=== PATIENT | male | born 1935 | race Caucasian/White ===

== ENCOUNTER 2018-05-08 09:08 | Inpatient (IN) ==
--- NOTE | 2018-05-08 09:38 | Emergency Department Note ---
ED Disposition Clinical Impression: COPD exacerbation, Hypertension, Hyperlipidemia, Tobacco use disorder, LBBB (left bundle branch block), Respiratory failure, Elevated troponin Disposition: Home, Self-Care Condition on Discharge: Fair Referrals: Julio Sanchez MD [Primary Care Provider] - - Critical Care Critical Care Time: No Attestation: On , the high probability of a clinically significant, sudden or life threatening deterioration of the following system(s) required my full and direct attention, intervention and personal management. The time I documented below is in addition to time spent performing reported procedures but includes the following listed in this critical care notation. Medical Decision Making - Rasheed Inquiry Pt receiving controlled substance: No Rasheed was queried for this patient: No Vital Signs: 05/08/18 09:10 05/08/18 09:20 05/08/18 10:32 Pulse Rate [Left Radial] 87 103 H Respiratory Rate 32 H 26 H Blood Pressure [Right Arm] 160/92 H 140/65 Blood Pressure Mean [Right Arm] 114 90 Blood Pressure Source [Right Arm] Automatic Cuff Blood Pressure Position [Right Arm] Sitting 02 Sat by Pulse Oximetry 58 L 92 L 99 Oxygen Delivery Method Room Air Non-Rebreather Non-Rebreather Oxygen Flow Rate (LPM) 15 15 05/08/18 10:44 05/08/18 11:26 Pulse Rate [Left Radial] 106 H 103 H Respiratory Rate 26 H 26 H Blood Pressure [Right Arm] 142/77 H 139/90 Blood Pressure Mean [Right Arm] 98 106 Blood Pressure Source [Right Arm] Automatic Cuff Automatic Cuff Blood Pressure Position [Right Arm] Sitting Sitting 02 Sat by Pulse Oximetry 98 96 Oxygen Delivery Method Non-Rebreather BiPAP Oxygen Flow Rate (LPM) 15 - Lab Data Lab Results 05/08/18 09:30: WBC 21.0 H*, RBC 4.59 L, Hgb 14.3, Hct 45.9, MCV 100.2 H, MCH 31.1, MCHC 31.0 L, RDW 12.9, Plt Count 186, MPV 7.7, Neut % (Auto) 80.0, Lymph % (Auto) 11.3, [place] % (Auto) 4.3, Eos % (Auto) 3.1, Baso % (Auto) 0.3, Neut # (Auto) 16.8 H, Lymph # (Auto) 2.4, [place] # (Auto) 0.9, Eos # (Auto) 0.7 H, Baso # (Auto) 0.1, Total Counted 100, Neutrophils % (Manual) 74, Lymphocytes % (Manual) 15, Monocytes % (Manual) 6, Eosinophils % (Manual) 3, Basophils % (Manual) 2.0 H , Platelet Estimate Normal, RBC Morphology Normal, Macrocytosis 1+ 05/08/18 09:40: Sodium 144, Potassium 4.0, Chloride 107, Carbon Dioxide 23, Anion Gap 18.0 H, BUN 20 H, Creatinine 1.23, Estimated Creat Clear 46, Estimated GFR 57 L, Est GFR ( Amer) 69, Glucose 188 H, Calcium 8.5, Total Bilirubin 0.6, AST 48 H, ALT 45, Alkaline Phosphatase 84, Total Creatine Kinase 319 H, CK- MB (CK-2) 20.1 H*, CK-MB (CK-2) Rel Index 6.3 H, Troponin I 1.45 H, Total Protein 7.0, Albumin 3.9, Globulin 3.1, Albumin/Globulin Ratio 1.3 05/08/18 09:40: B-Natriuretic Peptide 198 H 05/08/18 09:40: Lactate 4.4 H 05/08/18 09:51: Specimen Source Right radial, O2 % 100% nrb, ABG pH 7.22 L*, ABG pCO2 48.1 H, ABG pO2 113.1 H, ABG HCO3 19.2 L, ABG Total CO2 20.7 L, ABG O2 Saturation 97, ABG Base Excess -8.5 L, Isra Test Acceptable Result diagrams: 05/08/18 09:30 05/08/18 09:40 Orders (Tests/Meds): ED MEDICATIONS Generic Name Dose Route Start Last Admin Trade Name Freq PRN Reason Stop Dose Admin Albuterol/Ipratropium 3 ml 05/08/18 09:45 05/08/18 10:06 Duoneb 3ml Neb IH 06/07/18 09:44 3 ml Q1H JOYCE Administration Levofloxacin/Dextrose 750 mg in 150 mls @ 100 mls/hr 05/08/18 10:15 05/08/18 10:15 Levofloxacin 750mg/150ml Premix IV 05/22/18 10:14 100 mls/hr Q24H JOYCE Administration Protocol Sodium Chloride 1,000 mls @ 999 mls/hr 05/08/18 11:15 05/08/18 11:10 Sod Chlor 0.9% 1000ml Bag IV 05/08/18 12:15 999 mls/hr .Q1H1M JOYCE Administration Sodium Chloride 3 ml 05/08/18 10:08 Sodium Chloride 3% 15ml Neb IH 06/07/18 10:07 ONCE PRN INDUCE SPUTUM COLLECTION Discontinued Medications Generic Name Dose Route Start Last Admin Trade Name Freq PRN Reason Stop Dose Admin Famotidine 20 mg 05/08/18 09:33 05/08/18 09:47 Pepcid 20mg/2ml Vial IV 05/08/18 09:34 20 mg ONCE ONE Administration Hydrocortisone Sodium Succinate 100 mg 05/08/18 09:32 05/08/18 09:33 Solu-Cortef 100mg Vial IV 05/08/18 09:33 100 mg ONCE ONE Administration Methylprednisolone Sodium Succinate 125 mg 05/08/18 09:32 05/08/18 09:25 Solu-Medrol 125mg/2ml Vial IV 05/08/18 09:33 125 mg ONCE ONE Administration Methylprednisolone Sodium Succinate 80 mg 05/08/18 10:35 05/08/18 11:32 Solu-Medrol 125mg/2ml Vial IV 05/08/18 10:36 80 mg ONCE ONE Administration Nitroglycerin 0.5 gm 05/08/18 09:33 05/08/18 09:35 Nitroglycerin 1 Inch Oint Udp TD 05/08/18 09:34 0.5 gm ONCE ONE Administration ORDERS Category Date Time Status Lactic Acid Follow Up (RFLX 1) Stat Lab 05/08/18 10:41 Ordered Blood Culture Stat Micro 05/08/18 09:40 Received Sputum Culture & Gram Stain Stat Micro 05/08/18 10:08 Ordered ABG [Arterial Blood Gas] Stat RT 05/08/18 09:51 Ordered ECG Request by /Donna Stat Y 05/08/18 09:31 Ordered - Radiology Data #1 Image(s): Chest Image Reviewed: Yes I reviewed the patient's radiology image Preliminary Findings: Abnormal IMPRESSION: Probable right lower lobe pneumonia in addition to bilateral basilar chronic fibrotic changes - ECG Data Tracing #1 Normal sinus rhythm 90/min left atrial enlargement left bundle branch block baseline artifact no old EKG for comparison. ECG initial impression date: 05/08/18 ECG initial impression time: 09:42 Medical Decision Narrative: I gave the patient additional dose of steroids with modest improvement. He started on a BiPAP with good tolerance and reduction of the FiO2 to 50. X-ray was positive for bilateral pneumonia. It was not agreeable for admission nursing staff had to explain to him in more details the consequences of him leaving home. [address] Hurst is covering Dr. Sanchez agreed to admit the patient Resp/SOB HPI - General Chief Complaint: Shortness of Breath/Dyspnea Stated Complaint: SOB Time Seen by Provider: 05/08/18 09:15 Mode of Arrival: Ambulatory Limitations: No Limitations Description of Symptoms (Recalled from ER Triage Doc. by RN): to ed per pvt car with c/o shortness of breath and chest pain. starting at 2am today cpta none - History of Present Illness 82 years old white male avid smoker with history of hypertension hyperlipidemia and heart disease. He was brought by his daughter to the ED because of progressive shortness of breath since 2:00 in the morning. He denies having fever chills productive sputum hemoptysis chest pain or palpitation. He denies having nausea vomiting hematemesis coffee-ground emesis melanotic stool or bleeding per rectum. Denies having dysuria hematuria or frequency. He feels weak. MD Complaint: shortness of breath Onset (ago): hour(s) (Started at 2 AM today) Severity: severe Consistency/Duration: constant Relieving factors: oxygen, rest, bronchodilators, upright position Exacerbating factors: lying flat, exertion Known history of: COPD Associated symptoms: denies other symptoms Treatment prior to arrival: none - Related Data Home Medications Medication Instructions Recorded Confirmed Amlodipine Besylate 10 mg PO DAILY 05/08/18 05/08/18 Clopidogrel Bisulfate [Plavix] 75 mg PO DAILY 05/08/18 05/08/18 Metoprolol Tartrate [Lopressor 25 mg PO BID 05/08/18 05/08/18 25mg tablet] Simvastatin 40 mg PO DAILY 05/08/18 05/08/18 Allergies Allergy/AdvReac Type Severity Reaction Status Date / Time Penicillin Allergy Unknown Uncoded 07/28/17 15:20 Penicillin V Allergy Unknown Uncoded 07/28/17 15:20 Tetanus Toxoid Allergy Unknown Uncoded 07/28/17 15:20 [facility] History I have reviewed the patient's past medical history: Yes - Social History Smoking Status: Current every day smoker Tobacco Type: cigarettes Alcohol Intake: never - Psychiatric History Expresses thoughts of harming self/others: None Suicide Plan Description: No Plan ROS Obtained: Yes All systems reviewed & no additional complaints Physical Exam - General General appearance: alert, other (82 years old pale diaphoretic sitting upright in obvious respiratory distress. ) - Head Head exam: normocephalic - Eye Eye exam: Present: normal appearance, PERRL, EOMI. Absent: scleral icterus, conjunctival redness, nystagmus - ENT ENT exam: Present: normal exam, normal oropharynx, mucous membranes moist, TM's normal bilaterally, normal external ear exam - Neck Neck exam: Present: normal inspection, full ROM, trachea midline. Absent: tenderness, meningismus, lymphadenopathy - Chest Chest inspection: Present: normal inspection, symmetric chest wall rise. Absent: tenderness - Respiratory Respiratory exam: Present: respiratory distress, accessory muscle use (Diminished air entry bilaterally.), prolonged expiratory phase, other. Absent: normal lung sounds bilaterally, wheezes - Cardiovascular Cardiovascular exam: Present: regular rate, normal rhythm, normal heart sounds, other (Distant heart sounds). Absent: JVD - Abdominal Exam Abdominal exam: Present: soft, normal bowel sounds. Absent: distention, tenderness, guarding, rebound, rigidity - exam: Present: other (Was not indicated. ) - Extremities Exam Extremities exam: Present: normal inspection, full ROM, normal capillary refill, other (Poor hygiene with onychomycosis. ). Absent: tenderness, pedal edema, joint swelling, calf tenderness - Back Exam Back exam: Present: normal inspection. Absent: tenderness, CVA tenderness (R), CVA tenderness (L), paraspinal tenderness, vertebral tenderness - Neurological Exam Neurological exam: Present: alert, oriented X3, CN II-XII intact, motor sensory deficit, reflexes normal, other (He is alert to his daughter place and is aware of the day.) - Psychiatric Psychiatric exam: Present: normal affect, normal mood - Skin Skin exam: Present: warm, dry, intact, normal color - Lymphatic Lymphatic Findings: no adenopathy
[2018-05-08 09:53] LABS: ABG Base Excess -8.5 mmol/L (-2.4-2.3); ABG HCO3 19.2 mmhg (22.0-26.0); ABG Oxygen Saturation 97 % (90-100); ABG PCO2 48.1 mmhg (35.0-45.0); ABG PH 7.22 mmol/L (7.35-7.45); ABG PO2 113.1 mmhg (80-100); ABG TCO2 20.7 mmhg (23-27)
[2018-05-08 09:54] LABS: Allen's Test Acceptable
[2018-05-08 10:24] LABS: Basophils % 0.3 % (0.1-2.0); Eosinophils % 3.1 % (0.1-12.0); Hematocrit 45.9 % (42.0-52.0); Hemoglobin 14.3 g/dL (14.1-18.0); Lymphocytes % 11.3 K/mm3 (10-50); Mean Corpuscular Hemoglobin 31.1 pg (27.0-31.2); Mean Corpuscular Volume 100.2 fl (80-94); Mean Platelet Volume 7.7 fl (7.4-10.4); Monocytes % 4.3 % (1.7-9.3); Neutrophils # 16.8 K/mm3 (1.8-7.8); Platelet Count 186 K/mm3 (142-424); Red Blood Count 4.59 M/mm3 (4.60-6.20); Red Cell Distribution Width 12.9 % (11.5-17.5)
[2018-05-08 10:25] LABS: Basophils # 0.1 K/mm3 (0-0.2); Eosinophils # 0.7 K/mm3 (0.0-0.4); Lymphocytes # 2.4 K/mm3 (0.7-4.5); Monocytes # 0.9 K/mm3 (0.1-1.0)
[2018-05-08 10:42] LABS: Albumin Level 3.9 gm/dL (3.4-5.0); Albumin/Globulin Ratio 1.3 (1.1-1.8); Bilirubin,Total 0.6 mg/dL (0.2-1.0); Calcium 8.5 mg/dL (8.5-10.1); Globulin 3.1 gm/dl (1.3-3.2)
[2018-05-08 10:57] LABS: Eosinophils % 3 % (0-3); Lymphocytes % 15 % (10-50); Macrocytosis 1+; Monocytes % 6 % (2-9); Neutrophils % 74 % (42-76); RBC Morphology Normal; Total Cells Counted 100
--- NOTE | 2018-05-08 13:25 | History & Physical Report ---
*Admission Date: 05/08/18 *Chief complaint: Shortness of breath *History of present illness: Mr Haney is an 82 yo WM with hx of HBP, cerebrovascular disease, and valvular heart disease who presented to the ER this morning after suddden onset of SOA during the night. He denied cough, chest pain or fever. On prompt evaluation in the ER, he was noted to be hypoxic and acidotic on his ABG. WBC elevated at 21,000 and CXR showing RLL infiltrates. He was given aerosols and IV steroids and started on Bipap and his O2 sats came up to upper 80s and low 90s. His intial troponin was also mildly elevated. He initially refused admission but has finally consented to stay in the hospital for "one night". At the time of my exam, he is resting comfortably and tolerating the Bipap. He denies chest pain and feels less SOA. His 2nd troponin has returned elevated at 10. Dr. Fermin has been made aware. He has no past hx of angina or ID. Echo last year showed dilated left atrium, EF=45% and moderate to severe mitral regurgitation. A carotid US last year showed 100% stenosis on left and 70-99% stenosis of right carotid. He declined any further workup or intervention and has been maintained on ASA and Plavix. [facility] History Medical History: Reports:: Carotid Stenosis, Chronic Obstructive Pulmonary Disease (COPD), Cerebrovascular Accident, Hypertension, Valvular Heart Disease Other Surgeries: Yes: No Previous Surgery - *Social History Smoking Status: Current every day smoker Tobacco Type: cigarettes Alcohol Intake: never - Psychiatric History Expresses thoughts of harming self/others: None Suicide Plan Description: No Plan Review of Systems - Constitutional Denies chills, Denies fever(s), Denies weight loss - Eyes Denies change in vision - ENT Reports abnormal hearing Comments: c/o toothache from recent broken tooth - *Cardiovascular Reports shortness of breath, Reports shortness of breath with activity, Denies chest pain, Denies irregular heart rhythm - *Respiratory Reports chest congestion, Reports shortness of breath with activity, Denies cough, Denies coughing up blood, Denies pain with cough - *Gastrointestinal Denies abdominal pain, Denies change in stools, Denies bright, red blood in stools, Denies nausea, Denies vomiting - *Genitourinary Denies difficulty urinating - *Musculoskeletal Reports limited joint movement - Integumentary/Breasts Denies rash - *Neurologic Reports weakness, Denies behavioral changes Meds Home Medications Medication Instructions Recorded Confirmed Type Amlodipine Besylate 10 mg PO DAILY 05/08/18 05/08/18 History Clopidogrel Bisulfate [Plavix] 75 mg PO DAILY 05/08/18 05/08/18 History Metoprolol Tartrate [Lopressor 25 mg PO BID 05/08/18 05/08/18 History 25mg tablet] Simvastatin 40 mg PO HS 05/08/18 05/09/18 History Allergies Allergy/AdvReac Type Severity Reaction Status Date / Time Penicillins Allergy Unknown Verified 05/08/18 13:10 allergy reaction Tetanus Vaccines and Toxoid Allergy Unknown Verified 05/08/18 13:10 allergy reaction Exam Vital signs and Labs for Last 24 Hours: Temp Pulse Resp BP Pulse Ox 98.0 F 80 24 141/92 H 90 L 05/08/18 12:56 05/08/18 12:56 05/08/18 12:56 05/08/18 12:56 05/08/18 12:56 Laboratory Results - last 24 hr 05/08/18 09:30: WBC 21.0 H*, RBC 4.59 L, Hgb 14.3, Hct 45.9, MCV 100.2 H, MCH 31.1, MCHC 31.0 L, RDW 12.9, Plt Count 186, MPV 7.7, Neut % (Auto) 80.0, Lymph % (Auto) 11.3, [place] % (Auto) 4.3, Eos % (Auto) 3.1, Baso % (Auto) 0.3, Neut # (Auto) 16.8 H, Lymph # (Auto) 2.4, [place] # (Auto) 0.9, Eos # (Auto) 0.7 H, Baso # (Auto) 0.1, Total Counted 100, Neutrophils % (Manual) 74, Lymphocytes % (Manual) 15, Monocytes % (Manual) 6, Eosinophils % (Manual) 3, Basophils % (Manual) 2.0 H , Platelet Estimate Normal, RBC Morphology Normal, Macrocytosis 1+ 05/08/18 09:40: Sodium 144, Potassium 4.0, Chloride 107, Carbon Dioxide 23, Anion Gap 18.0 H, BUN 20 H, Creatinine 1.23, Estimated Creat Clear 46, Estimated GFR 57 L, Est GFR ( Amer) 69, Glucose 188 H, Calcium 8.5, Total Bilirubin 0.6, AST 48 H, ALT 45, Alkaline Phosphatase 84, Total Creatine Kinase 319 H, CK- MB (CK-2) 20.1 H*, CK-MB (CK-2) Rel Index 6.3 H, Troponin I 1.45 H, Total Protein 7.0, Albumin 3.9, Globulin 3.1, Albumin/Globulin Ratio 1.3 05/08/18 09:40: B-Natriuretic Peptide 198 H 05/08/18 09:40: Lactate 4.4 H 05/08/18 09:51: Specimen Source Right radial, O2 % 100% nrb, ABG pH 7.22 L*, ABG pCO2 48.1 H, ABG pO2 113.1 H, ABG HCO3 19.2 L, ABG Total CO2 20.7 L, ABG O2 Saturation 97, ABG Base Excess -8.5 L, Isra Test Acceptable 05/08/18 12:12: Troponin I 10.72 H I & O for Last 24 hours: Intake & Output 05/06/18 05/07/18 05/08/18 05/09/18 11:59 11:59 11:59 11:59 Weight 150 lb 161 lb 1 oz - Constitutional Comments: lying comfortably with Bipap in place. No resp distress - *Routine HEENT Exam Head: Present: normocephalic, atraumatic Eye: Present: EOMI, PERRL. Absent: scleral injection ENT: Present: mucous membranes dry Comments: edentulous - *Routine Neck Exam Present: supple, carotid bruit. Absent: thyromegaly - *Routine Respiratory Exam Comments: coarse rhonchi and wheezes throughout - *Routine Cardiovascular Exam Present: RRR, murmur Comments: Gr 2/6 systolic murmur - *Routine Abdominal Exam Present: soft. Absent: tenderness, distended - *Routine Extremities Exam Comments: trace PTE - *Routine Skin Exam Present: warm. Absent: rash - *Routine Neurological Exam Present: alert, oriented X3 Assessment and Plan (1) RLL pneumonia Current visit: Yes Status: Acute Category: Medical Code(s): J18.1 - Lobar pneumonia, unspecified organism (2) Acute [place] Current visit: Yes Status: Acute Category: Medical Code(s): I21.9 - Acute myocardial infarction, unspecified (3) Acute respiratory failure Current visit: Yes Status: Acute Category: Medical Code(s): J96.00 - Acute respiratory failure, unspecified whether with hypoxia or hypercapnia (4) Carotid artery disease Current visit: Yes Status: Acute Category: Medical Code(s): I77.9 - Disorder of arteries and arterioles, unspecified (5) History of CVA (cerebrovascular accident) Current visit: Yes Status: Acute Category: Medical Code(s): Z86.73 - Personal history of transient ischemic attack (TIA), and cerebral infarction without residual deficits (6) Mitral valve regurgitation Current visit: Yes Status: Acute Category: Medical Code(s): I34.0 - Nonrheumatic mitral (valve) insufficiency (7) Hypertension Current visit: Yes Status: Acute Category: Medical Code(s): I10 - Essential (primary) hypertension (8) COPD (chronic obstructive pulmonary disease) Current visit: Yes Status: Acute Category: Medical Code(s): J44.9 - Chronic obstructive pulmonary disease, unspecified (9) Personal history of tobacco use Current visit: Yes Status: Acute Category: Social Hx Code(s): Z87.891 - Personal history of nicotine dependence - Assessment and plan all Dx Assessment and Plan for all problems:: He has agreed to a brief hospital admission to treat his pneumonia. He will be continued on Bipap, antibiotics, steroids, and aerosols. Currently his sats are in upper 80s and he appears comfortable. Dr. Fermin has been made aware of the elevation of his 2nd troponin. Patient will not likely consent to invasive procedures but will discuss further when other family is available. Will also clarify his DNR status.
[2018-05-09 06:48] LABS: Eosinophils # 0.1 K/mm3 (0.0-0.4); Eosinophils % 0.3 % (0.1-12.0); Hematocrit 37.6 % (42.0-52.0); Hemoglobin 13.1 g/dL (14.1-18.0); Lymphocytes # 1.1 K/mm3 (0.7-4.5); Lymphocytes % 6.1 K/mm3 (10-50); Mean Corpuscular HGB Conc 34.8 g/dL (31.8-35.4); Mean Corpuscular Hemoglobin 33.8 pg (27.0-31.2); Mean Corpuscular Volume 97.3 fl (80-94); Mean Platelet Volume 7.9 fl (7.4-10.4); Monocytes # 0.7 K/mm3 (0.1-1.0); Monocytes % 3.7 % (1.7-9.3); Neutrophils # 16.6 K/mm3 (1.8-7.8); Neutrophils % 89.9 % (37.0-80.0); Platelet Count 137 K/mm3 (142-424); Red Blood Count 3.87 M/mm3 (4.60-6.20); Red Cell Distribution Width 13.2 % (11.5-17.5); White Blood Count 18.4 K/mm3 (4.8-10.8)
[2018-05-09 07:04] LABS: Anion Gap 17.4 mEq/L (5-15); Calcium 8.3 mg/dL (8.5-10.1); Chol/HDL Ratio 2.4 (1-3.5); Potassium 4.4 mmoL/L (3.5-5.1)
[2018-05-09 07:06] LABS: Lymphocytes % 13 % (10-50); Monocytes % 1 % (2-9); Neutrophils % 76 % (42-76); RBC Morphology Normal; Rouleaux 1+; Total Cells Counted 100
--- NOTE | 2018-05-09 09:58 | Progress Note ---
Internal Medicine - PN: Subj *Date: 05/09/18 *Time: 09:55 Interval history: The chart is reviewed. Patient has a pneumonia and has definitely had a myocardial infarction. On exam this morning he looks surprisingly good. He is alert and in no acute distress. He is sitting on the edge of his bed talking to his relative. His color is good. His heart rate is regular. He has fairly good air movement bilaterally with some rales. He has no edema. Exam Vital signs and Labs for Last 24 Hours: Temp Pulse Resp BP Pulse Ox 97.0 F L 77 20 136/75 94 L 05/09/18 07:59 05/09/18 07:59 05/09/18 07:59 05/09/18 07:59 05/09/18 08:00 Laboratory Results - last 24 hr 05/08/18 09:30: WBC 21.0 H*, RBC 4.59 L, Hgb 14.3, Hct 45.9, MCV 100.2 H, MCH 31.1, MCHC 31.0 L, RDW 12.9, Plt Count 186, MPV 7.7, Neut % (Auto) 80.0, Lymph % (Auto) 11.3, [place] % (Auto) 4.3, Eos % (Auto) 3.1, Baso % (Auto) 0.3, Neut # (Auto) 16.8 H, Lymph # (Auto) 2.4, [place] # (Auto) 0.9, Eos # (Auto) 0.7 H, Baso # (Auto) 0.1, Total Counted 100, Neutrophils % (Manual) 74, Lymphocytes % (Manual) 15, Monocytes % (Manual) 6, Eosinophils % (Manual) 3, Basophils % (Manual) 2.0 H , Platelet Estimate Normal, RBC Morphology Normal, Macrocytosis 1+ 05/08/18 09:40: Sodium 144, Potassium 4.0, Chloride 107, Carbon Dioxide 23, Anion Gap 18.0 H, BUN 20 H, Creatinine 1.23, Estimated Creat Clear 46, Estimated GFR 57 L, Est GFR ( Amer) 69, Glucose 188 H, Calcium 8.5, Total Bilirubin 0.6, AST 48 H, ALT 45, Alkaline Phosphatase 84, Total Creatine Kinase 319 H, CK- MB (CK-2) 20.1 H*, CK-MB (CK-2) Rel Index 6.3 H, Troponin I 1.45 H, Total Protein 7.0, Albumin 3.9, Globulin 3.1, Albumin/Globulin Ratio 1.3 05/08/18 09:40: B-Natriuretic Peptide 198 H 05/08/18 09:40: Lactate 4.4 H 05/08/18 12:12: Troponin I 10.72 H 05/08/18 13:43: Lactate 5.3 H 05/08/18 15:30: Troponin I 31.94 H 05/08/18 15:30: Lactate 5.8 H 05/08/18 18:13: Troponin I 56.77 H 05/09/18 06:08: WBC 18.4 H, RBC 3.87 L, Hgb 13.1 L, Hct 37.6 L, MCV 97.3 H, MCH 33.8 H, MCHC 34.8, RDW 13.2, Plt Count 137 L D, MPV 7.9, Neut % (Auto) 89.9 H, Lymph % (Auto) 6.1 L, [place] % (Auto) 3.7, Eos % (Auto) 0.3, Baso % (Auto) 0.0 L, Neut # (Auto) 16.6 H, Lymph # (Auto) 1.1, [place] # (Auto) 0.7, Eos # (Auto) 0.1, Baso # (Auto) 0.0, Total Counted 100, Neutrophils % (Manual) 76, Band Neutrophils % 10.0 H, Lymphocytes % (Manual) 13, Monocytes % (Manual) 1 L, Platelet Estimate Slight decrease, RBC Morphology Normal, [place] 1+ 05/09/18 06:08: Sodium 145, Potassium 4.4, Chloride 107, Carbon Dioxide 25, Anion Gap 17.4 H, BUN 31 H D, Creatinine 1.51 H D, Estimated Creat Clear 39, Estimated GFR 45 L, Est GFR ( Amer) 54 L D, Glucose 156 H, Calcium 8.3 L, Magnesium 1.8, Triglycerides 92, Cholesterol 132 L, LDL Cholesterol 60, VLDL Cholesterol 18, HDL Cholesterol 54, Cholesterol/HDL Ratio 2.4 05/09/18 06:08: B-Natriuretic Peptide 1170 H Laboratory Tests 05/08/18 05/08/18 05/08/18 09:30 09:40 15:30 WBC 21.0 H* Hgb 14.3 Sodium Potassium Chloride Anion Gap BUN Creatinine Total Creatine Kinase 319 H Troponin I 31.94 H 05/08/18 05/09/18 05/09/18 18:13 06:08 06:08 WBC 18.4 H Hgb 13.1 L Sodium 145 Potassium 4.4 Chloride 107 Anion Gap 17.4 H BUN 31 H D Creatinine 1.51 H D Total Creatine Kinase Troponin I 56.77 H I & O for Last 24 hours: Intake & Output 05/06/18 05/07/18 05/08/18 05/09/18 11:59 11:59 11:59 11:59 Intake Total 756 / 756 Output Total 710 / 710 Balance 46 / 46 Weight 150 lb 157 lb 7 oz - Constitutional no acute distress - *Routine HEENT Exam Eye: Present: PERRL ENT: Present: mucous membranes moist - *Routine Respiratory Exam Absent: respiratory distress Comments: Good air movement bilaterally with a few rales. There are decreased breath sounds. - *Routine Cardiovascular Exam Present: RRR - *Routine Abdominal Exam Present: soft. Absent: tenderness - *Routine Extremities Exam Absent: edema Assessment and Plan (1) RLL pneumonia Current visit: Yes Status: Acute Category: Medical Code(s): J18.1 - Lobar pneumonia, unspecified organism (2) Acute [place] Current visit: Yes Status: Acute Category: Medical Code(s): I21.9 - Acute myocardial infarction, unspecified (3) Acute respiratory failure Current visit: Yes Status: Acute Category: Medical Code(s): J96.00 - Acute respiratory failure, unspecified whether with hypoxia or hypercapnia (4) Carotid artery disease Current visit: Yes Status: Acute Category: Medical Code(s): I77.9 - Disorder of arteries and arterioles, unspecified (5) History of CVA (cerebrovascular accident) Current visit: Yes Status: Acute Category: Medical Code(s): Z86.73 - Personal history of transient ischemic attack (TIA), and cerebral infarction without residual deficits (6) Mitral valve regurgitation Current visit: Yes Status: Acute Category: Medical Code(s): I34.0 - Nonrheumatic mitral (valve) insufficiency (7) Hypertension Current visit: Yes Status: Acute Category: Medical Code(s): I10 - Essential (primary) hypertension - Assessment and plan all Dx Assessment and Plan for all problems:: He is responding well to current treatment. He does understand the seriousness of his illness. He is not pushing for discharge today.
--- NOTE | 2018-05-09 11:59 | Pharmacy Consult Notes ---
[facility] Pharmacy VTE Monitoring - Patient Demographics Admission date: 05/08/18 Report Date: 05/09/18 Time: 11:59 Allergies/Adverse Reactions: Patient Allergies Penicillins Allergy (Verified 05/08/18 13:10) Unknown allergy reaction Tetanus Vaccines and Toxoid Allergy (Verified 05/08/18 13:10) Unknown allergy reaction Height: 1.65 m Weight: 71.412 kg Patient Problems: Current Active Problems COPD exacerbation (Acute) Hypertension (Acute) Hyperlipidemia (Acute) Tobacco use disorder (Acute) LBBB (left bundle branch block) (Acute) Respiratory failure (Acute) Elevated troponin (Acute) Acute respiratory failure (Acute) Carotid artery disease (Acute) History of CVA (cerebrovascular accident) (Acute) Acute [place] (Acute) Mitral valve regurgitation (Acute) RLL pneumonia (Acute) - VTE Risk Labs: VTE Related Lab Results Hgb 13.1 g/dL (14.1-18.0) L 05/09/18 06:08 Hct 37.6 % (42.0-52.0) L 05/09/18 06:08 Plt Count 137 K/mm3 (142-424) L D 05/09/18 06:08 BUN 31 mg/dL (7-18) H D 05/09/18 06:08 Creatinine 1.51 mg/dL (0.70-1.30) H D 05/09/18 06:08 Estimated Creat Clear 39 mL/min (0-300) 05/09/18 06:08 Was VTE Risk Assessment Performed: Yes VTE Score: 6 VTE Risk Level: Moderate Risk - Prophylaxis VTE Prophylaxis Ordered?: Yes Types of VTE Prophylaxis: Pharmacological Pharmacologic Type: Enoxaparin
--- NOTE | 2018-05-10 07:58 | Progress Note ---
Internal Medicine - PN: Subj *Date: 05/10/18 *Time: 07:45 Interval history: Patient states that he does not feel well. He is short of breath. He denies chest pain. He is eating without difficulty. He is voiding QS. He would like to be left alone. Blood cultures showing gram-positive cocci Exam Vital signs and Labs for Last 24 Hours: Temp Pulse Resp BP Pulse Ox 97.1 F L 72 16 123/73 91 L 05/10/18 07:37 05/10/18 07:37 05/10/18 07:37 05/10/18 07:37 05/10/18 07:37 I & O for Last 24 hours: Intake & Output 05/07/18 05/08/18 05/09/18 05/10/18 11:59 11:59 11:59 11:59 Intake Total 996 / 996 1455 / 1455 Output Total 710 / 710 600 / 600 Balance 286 / 286 855 / 855 Weight 150 lb 157 lb 7 oz 155 lb 3 oz Microbiology Reports for the Last 24 Hours: Microbiology 05/09/18 16:30 Sputum - Expectorated Sputum Gram Stain - Final 05/09/18 16:30 Sputum - Expectorated Sputum Sputum Culture - Final 05/08/18 09:40 Blood Blood Culture - Preliminary Gram Positive Cocci 05/09/18 19:00 Sputum - Expectorated Sputum Gram Stain - Final 05/09/18 19:00 Sputum - Expectorated Sputum Sputum Culture - Preliminary - Constitutional no acute distress Comments: Sitting on the bedside eating his breakfast. Dyspneic with talking - *Routine Respiratory Exam Comments: Bilateral wheezing and right basilar crackles. Poor inspiratory effort. - *Routine Cardiovascular Exam Present: RRR - *Routine Abdominal Exam Present: soft, normoactive bowel sounds. Absent: tenderness - *Routine Extremities Exam Present: edema (Trace) - *Routine Neurological Exam Seems alert. Assessment and Plan (1) RLL pneumonia Current visit: Yes Status: Acute Category: Medical Code(s): J18.1 - Lobar pneumonia, unspecified organism (2) Acute [place] Current visit: Yes Status: Acute Category: Medical Code(s): I21.9 - Acute myocardial infarction, unspecified (3) Acute respiratory failure Current visit: Yes Status: Acute Category: Medical Code(s): J96.00 - Acute respiratory failure, unspecified whether with hypoxia or hypercapnia (4) Carotid artery disease Current visit: Yes Status: Acute Category: Medical Code(s): I77.9 - Disorder of arteries and arterioles, unspecified (5) History of CVA (cerebrovascular accident) Current visit: Yes Status: Acute Category: Medical Code(s): Z86.73 - Personal history of transient ischemic attack (TIA), and cerebral infarction without residual deficits (6) Mitral valve regurgitation Current visit: Yes Status: Acute Category: Medical Code(s): I34.0 - Nonrheumatic mitral (valve) insufficiency (7) Hypertension Current visit: Yes Status: Acute Category: Medical Code(s): I10 - Esse ntial (primary) hypertension (8) COPD (chronic obstructive pulmonary disease) Current visit: Yes Status: Acute Category: Medical Code(s): J44.9 - Chronic obstructive pulmonary disease, unspecified (9) Personal history of tobacco use Current visit: Yes Status: Acute Category: Social Hx Code(s): Z87.891 - Personal history of nicotine dependence - Assessment and plan all Dx Assessment and Plan for all problems:: We will schedule aerosols. Discussed with cardiology and will give 40 of Lasix IV. Continue current antibiotics with final blood cultures pending. Patient did express with cardiology that he wanted no procedures and just wanted to to be with his .
--- NOTE | 2018-05-10 08:09 | Consult Report ---
History of Present Illness Consult date: 05/10/18 Requesting physician: Julio Sanchez Consult reason: chest pain Chief complaint: chest pain, SOA Additional Medical History:: 1. History of hypertension A. Echo, 2004, normal LVEF with aortic valve sclerosis without stenosis 2. Hyperlipidemia 3. 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 Carotid stenosis, u/s 2004, LICA occluded with 20-49% PINKY B. Chronic plavix therapy 4. Tobacco use, continued 5. Coronary artery disease A. Myocardial infarction with troponin of 51, 04/2018, patient refused cardiac catheter further intervention B. Abnormal EKG with left bundle branch block C. Prior inferior NM by stress test, 2004, with normal EF with mild anterior ischemia. Asymptomatic, so no further intervention recommended. 6. DNR History of present illness: Mr Haney is an 82 yo WM with hx of HBP, cerebrovascular disease, and valvular heart disease who presented to the ER this morning after suddden onset of SOA during the night. He denied cough, chest pain or fever. On prompt evaluation in the ER, he was noted to be hypoxic and acidotic on his ABG. WBC elevated at 21,000 and CXR showing RLL infiltrates. He was given aerosols and IV steroids and started on Bipap and his O2 sats came up to upper 80s and low 90s. His intial troponin was also mildly elevated. He initially refused admission but has finally consented to stay in the hospital for "one night". At the time of my exam, he is resting comfortably and tolerating the Bipap. He denies chest pain and feels less SOA. His 2nd troponin has returned elevated at 10. Dr. Fermin has been made aware. He has no past hx of angina or NM. Echo last year showed dilated left atrium, EF=45% and moderate to severe mitral regurgitation. A carotid US last year showed 100% stenosis on left and 70-99% stenosis of right carotid. He declined any further workup or intervention and has been maintained on ASA and Plavix. The above per Dr. Hurst The patient is slightly hard of hearing but able to answer questions appropriately. We discussed the patient's blood work indicating myocardial infarction. The patient states he has not had one and does not want anything done. States his a couple of years ago and he just wants to join her. He lives at home by himself with his daughter checking in on him during the week. He denies any chest pain at this time but does note that he is more short of breath than previously. His EKG here in the hospital shows sinus rhythm but left bundle branch block. Telemetry reveals left bundle branch block to be rate related. [facility] History Medical History: Reports:: Carotid Stenosis, Chronic Obstructive Pulmonary Disease (COPD), Cerebrovascular Accident, Hypertension, Valvular Heart Disease Denies:: Cancer, Diabetes Mellitus Type 1, MRSA Other Surgeries: Yes: No Previous Surgery Amputation: No - *Social History Educational Level: Completed Grade School Smoking Status: Current every day smoker Tobacco Type: cigarettes # Packs/Day (cigarettes): 1 Alcohol Intake: never Occupational Status: retired Housing: other - Psychiatric History Expresses thoughts of harming self/others: None Suicide Plan Description: No Plan *Family Hx:: Unable to obtain Meds Home Medications Medication Instructions Recorded Confirmed Type Amlodipine Besylate 10 mg PO DAILY 05/08/18 05/08/18 History Clopidogrel Bisulfate [Plavix] 75 mg PO DAILY 05/08/18 05/08/18 History Metoprolol Tartrate [Lopressor 25 mg PO BID 05/08/18 05/08/18 History 25mg tablet] Simvastatin 40 mg PO HS 05/08/18 05/09/18 History Allergies Allergy/AdvReac Type Severity Reaction Status Date / Time Penicillins Allergy Unknown Verified 05/08/18 13:10 allergy reaction Tetanus Vaccines and Toxoid Allergy Unknown Verified 05/08/18 13:10 allergy reaction Review of Systems - *Cardiovascular Reports chest pain, Reports shortness of breath, Reports shortness of breath with activity - *Respiratory Reports shortness of breath, Reports shortness of breath with activity - *Gastrointestinal Denies change in stools, Denies loose stools - *Genitourinary Denies blood in urine - *Musculoskeletal Reports limited joint movement - *Neurologic Reports abnormal hearing, Reports weakness, Denies behavioral changes Exam Vital signs and Labs for Last 24 Hours: Temp Pulse Resp BP Pulse Ox 97.1 F L 72 16 123/73 91 L 05/10/18 07:37 05/10/18 07:37 05/10/18 07:37 05/10/18 07:37 05/10/18 07:37 I & O for Last 24 hours: Intake & Output 05/07/18 05/08/18 05/09/18 05/10/18 11:59 11:59 11:59 11:59 Intake Total 996 / 996 1455 / 1455 Output Total 710 / 710 600 / 600 Balance 286 / 286 855 / 855 Weight 150 lb 157 lb 7 oz 155 lb 3 oz Microbiology Reports for the Last 24 Hours: Microbiology 05/09/18 16:30 Sputum - Expectorated Sputum Gram Stain - Final 05/09/18 16:30 Sputum - Expectorated Sputum Sputum Culture - Final 05/08/18 09:40 Blood Blood Culture - Preliminary Gram Positive Cocci 05/09/18 19:00 Sputum - Expectorated Sputum Gram Stain - Final 05/09/18 19:00 Sputum - Expectorated Sputum Sputum Culture - Preliminary - *Routine Neck Exam Present: supple, carotid bruit. Absent: JVD - *Routine Respiratory Exam Present: rales, rhonchi. Absent: accessory muscle use, wheezes - *Routine Cardiovascular Exam Present: RRR, murmur. Absent: gallop, rubs - *Routine Abdominal Exam Present: soft. Absent: tenderness, distended, guarding - *Routine Extremities Exam Present: edema. Absent: calf tenderness - *Routine Neurological Exam Present: alert, oriented X3, moving all extremities Assessment and Plan (1) RLL pneumonia Current visit: Yes Status: Acute Category: Medical Code(s): J18.1 - Lobar pneumonia, unspecified organism (2) Acute [place] Current visit: Yes Status: Acute Category: Medical Code(s): I21.9 - Acute myocardial infarction, unspecified (3) Acute respiratory failure Current visit: Yes Status: Acute Category: Medical Code(s): J96.00 - Acute respiratory failure, unspecified whether with hypoxia or hypercapnia (4) Carotid artery disease Current visit: Yes Status: Acute Category: Medical Code(s): I77.9 - Disorder of arteries and arterioles, unspecified (5) History of CVA (cerebrovascular accident) Current visit: Yes Status: Acute Category: Medical Code(s): Z86.73 - Personal history of transient ischemic attack (TIA), and cerebral infarction without residual deficits (6) Mitral valve regurgitation Current visit: Yes Status: Acute Category: Medical Code(s): I34.0 - Nonrheumatic mitral (valve) insufficiency (7) Hypertension Current visit: Yes Status: Acute Category: Medical Code(s): I10 - Essential (primary) hypertension (8) COPD (chronic obstructive pulmonary disease) Current visit: Yes Status: Acute Category: Medical Code(s): J44.9 - Chronic obstructive pulmonary disease, unspecified (9) Personal history of tobacco use Current visit: Yes Status: Acute Category: Social Hx Code(s): Z87.891 - Personal history of nicotine dependence - Assessment and plan all Dx Assessment and Plan for all problems:: 1. Recommended echo and LHC, but pt refuses stating he just wants to go home and is ready to join his . 2. Recommend IV lasix due to conversational dyspnea and presumed LV systolic dysfunction with discharge home on lasix PO. 3. Continue beta torrie therapy but consider switching to coreg and adding RODOLFO or ARB as BP and Renal functions tolerate. 4. Nothing further to add. If patient changes his mind about cardiac cath, please let us know.
--- NOTE | 2018-05-10 21:09 | Cardiology Report ---
PROCEDURE: 2-D M-mode and color Doppler study INDICATIONS FOR THE TEST: Chest pain COPDX Heart Murmur Tobacco SmokingX Palpitations Fatigue Syncope Edema Hypertension Diabetes Mellitus Rheumatic Fever SOBXDOEXObesity Hyperlipidemia Family History HD Additional History MS,CVA,CAD EF 02/12/17 45% PATIENT INFORMATION HEIGHT: 65 WEIGHT:155 GENDER: Male B/P:141/92 2-D/M-MODE INTERPRETATION: 2-D MEASUREMENTS OBSERVED VALUES IN CMS Right Ventricular Dimension (RVDd) 1.2 Interventricular Septum (Thickness)(IVsd) .9 Left Ventricular Internal Dimensions(LVIDd) 6.9 Left Ventricular Posterior Wall (Thickness)(LVPWd) 1.2 Aortic Root 3.2 Aortic Cusp Separation 1.0 Left Atrial Dimensions (LAD) 3.4 2D 1. Left atrium is qualitatively moderately enlarged, left ventricle is mildly dilated, mild concentric left ventricular hypertrophy, severely reduced left ventricular systolic function, visually estimated ejection fraction of approximately 25-30%, there is marked hypokinesis involving the mid to distal septum, anterior, anteroapical, apex and inferior wall. 2. The right atrium and right ventricle are normal size and contractility. 3. The aortic valve is thickened and calcified leaflet continue to display mobility. 4. The mitral valve has mitral calcification, leaflets are minimally thickened and calcified. 5. The tricuspid valve is structurally normal. 6. The pulmonic valve is poorly visualized. 7. No significant pericardial effusion noted. DOPPLER INTERROGATION: Doppler interrogation of the aortic, mitral and tricuspid valvular presence of moderate to severe mitral and mild tricuspid regurgitation, tricuspid regurgitation jet velocity is inadequate for calculation of the right ventricular systolic pressure, grade 1 diastolic dysfunction seen with tissue Doppler evidence of raised left atrial pressure. CONCLUSION: 1. Moderately enlarged left atrium, mildly dilated left ventricle, mild concentric left ventricular hypertrophy, severely reduced left ventricular systolic function, visually estimated ejection fraction of 25-30%, with multiple segmental wall motion abnormality described above, grade 1 diastolic dysfunction seen with tissue Doppler evidence of raised left atrial pressure. 2. Moderate to severe mitral and mild tricuspid regurgitation. 3. No significant pericardial effusion noted.
--- NOTE | 2018-05-11 07:46 | Progress Note ---
Internal Medicine - PN: Subj *Date: 05/11/18 *Time: 07:30 Interval history: Patient states that he slept some. He has been eating as usual. He states he periodically gets short of breath which she does at home as well. He denies chest pain. He is voiding without difficulty. His bowels have not moved. States he wants to go home. Final blood culture with ID results are still pending. Exam Vital signs and Labs for Last 24 Hours: Temp Pulse Resp BP Pulse Ox 98.3 F 72 18 108/52 L 92 L 05/11/18 03:46 05/11/18 05:47 05/11/18 03:46 05/11/18 03:46 05/11/18 05:47 I & O for Last 24 hours: Intake & Output 05/08/18 05/09/18 05/10/18 05/11/18 11:59 11:59 11:59 11:59 Intake Total 996 / 996 1555 / 1555 1426 / 1426 Output Total 710 / 710 600 / 600 500 / 500 Balance 286 / 286 955 / 955 926 / 926 Weight 150 lb 157 lb 7 oz 155 lb 3 oz 155 lb 3.005 oz Microbiology Reports for the Last 24 Hours: Microbiology 05/09/18 19:00 Sputum - Expectorated Sputum Gram Stain - Final 05/09/18 19:00 Sputum - Expectorated Sputum Sputum Culture - Preliminary 05/08/18 09:40 Blood Blood Culture - Preliminary NO GROWTH AFTER 48 HOURS 05/09/18 16:30 Sputum - Expectorated Sputum Gram Stain - Final 05/09/18 16:30 Sputum - Expectorated Sputum Sputum Culture - Final 05/08/18 09:40 Blood Blood Culture - Preliminary Gram Positive Cocci - Constitutional no acute distress Comments: Sitting on bedside eating his breakfast. Appears comfortable. No dyspnea with talking this a.m. - *Routine Respiratory Exam Comments: Scattered worse expiratory wheezing. Moving air better. Bilateral basilar crackles greater on the right. - *Routine Cardiovascular Exam Present: RRR (Monitor showing sinus rhythm with ST depression) - *Routine Abdominal Exam Present: soft, normoactive bowel sounds. Absent: tenderness - *Routine Extremities Exam Present: edema (Trace ankle edema bilaterally). Absent: calf tenderness - *Routine Neurological Exam Present: alert Assessment and Plan (1) RLL pneumonia Current visit: Yes Status: Acute Category: Medical Code(s): J18.1 - Lobar pneumonia, unspecified organism (2) Acute [place] Current visit: Yes Status: Acute Category: Medical Code(s): I21.9 - Acute myocardial infarction, unspecified (3) Acute respiratory failure Current visit: Yes Status: Acute Category: Medical Code(s): J96.00 - Acute respiratory failure, unspecified whether with hypoxia or hypercapnia (4) Carotid artery disease Current visit: Yes Status: Acute Category: Medical Code(s): I77.9 - Disorder of arteries and arterioles, unspecified (5) History of CVA (cerebrovascular accident) Current visit: Yes Status: Acute Category: Medical Code(s): Z86.73 - Personal history of transient ischemic attack (TIA), and cerebral infarction without residual deficits (6) Mitral valve regurgitation Current visit: Yes Status: Acute Category: Medical Code(s): I34.0 - Nonrheumatic mitral (valve) insufficiency (7) Hypertension Current visit: Yes Status: Acute Category: Medical Code(s): I10 - Essential (primary) hypertension (8) COPD (chronic obstructive pulmonary disease) Current visit: Yes Status: Acute Category: Medical Code(s): J44.9 - Chronic obstructive pulmonary disease, unspecified (9) Personal history of tobacco use Current visit: Yes Status: Acute Category: Medical Code(s): Z87.891 - Personal history of nicotine dependence - Assessment and plan all Dx Assessment and Plan for all problems:: Continue with current antibiotic pending culture results. Will repeat labs this a.m.
[2018-05-11 08:11] LABS: Eosinophils % 0.1 % (0.1-12.0); Hematocrit 37.9 % (42.0-52.0); Lymphocytes # 0.7 K/mm3 (0.7-4.5); Lymphocytes % 3.5 K/mm3 (10-50); Mean Corpuscular HGB Conc 31.7 g/dL (31.8-35.4); Mean Corpuscular Hemoglobin 30.5 pg (27.0-31.2); Mean Corpuscular Volume 96.2 fl (80-94); Mean Platelet Volume 8.4 fl (7.4-10.4); Monocytes # 0.5 K/mm3 (0.1-1.0); Monocytes % 2.7 % (1.7-9.3); Neutrophils # 17.3 K/mm3 (1.8-7.8); Neutrophils % 93.7 % (37.0-80.0); Platelet Count 149 K/mm3 (142-424); Red Blood Count 3.94 M/mm3 (4.60-6.20); Red Cell Distribution Width 13.2 % (11.5-17.5); White Blood Count 18.4 K/mm3 (4.8-10.8)
[2018-05-11 08:47] LABS: Anion Gap 13.9 mEq/L (5-15); Calcium 8.4 mg/dL (8.5-10.1); Potassium 3.9 mmoL/L (3.5-5.1)
[2018-05-11 09:13] LABS: Lymphocytes % 3 % (10-50); Monocytes % 3 % (2-9); Neutrophils % 91 % (42-76); Total Cells Counted 100
[2018-05-11 09:14] LABS: RBC Morphology Normal
--- NOTE | 2018-05-11 10:42 | Progress Note ---
Internal Medicine - PN: Subj *Date: 05/11/18 *Time: 10:40 Exam Vital signs and Labs for Last 24 Hours: Temp Pulse Resp BP Pulse Ox 98.6 F 83 18 137/73 96 05/11/18 08:00 05/11/18 08:00 05/11/18 08:00 05/11/18 08:00 05/11/18 08:00 Laboratory Results - last 24 hr 05/11/18 08:00: WBC 18.4 H, RBC 3.94 L, Hgb 12.0 L, Hct 37.9 L, MCV 96.2 H, MCH 30.5, MCHC 31.7 L, RDW 13.2, Plt Count 149, MPV 8.4, Neut % (Auto) 93.7 H, Lymph % (Auto) 3.5 L, Gentry % (Auto) 2.7, Eos % (Auto) 0.1, Baso % (Auto) 0.0 L, Neut # (Auto) 17.3 H, Lymph # (Auto) 0.7, Gentry # (Auto) 0.5, Eos # (Auto) 0.0, Baso # (Auto) 0.0, Total Counted 100, Neutrophils % (Manual) 91 H, Lymphocytes % (Manual) 3 L, Atypical Lymphs % 3.0, Monocytes % (Manual) 3, Platelet Estimate Normal, RBC Morphology Normal 05/11/18 08:00: Sodium 143, Potassium 3.9, Chloride 107, Carbon Dioxide 26, Anion Gap 13.9, BUN 49 H D, Creatinine 1.41 H, Estimated Creat Clear 42, Estimated GFR 48 L, Est GFR ( Amer) 59, Glucose 153 H, Calcium 8.4 L, Troponin I 34.10 H 05/11/18 08:00: Lactate 1.3 I & O for Last 24 hours: Intake & Output 05/08/18 05/09/18 05/10/18 05/11/18 23:59 23:59 23:59 23:59 Intake Total 1336 / 1336 1455 / 1455 1666 / 1666 Output Total 460 / 460 750 / 750 600 / 600 Balance -460 / -460 586 / 586 855 / 855 1666 / 1666 Weight 73.057 kg 71.412 kg 70.392 kg 70.108 kg Microbiology Reports for the Last 24 Hours: Microbiology 05/09/18 19:00 Sputum - Expectorated Sputum Gram Stain - Final 05/09/18 19:00 Sputum - Expectorated Sputum Sputum Culture - Preliminary 05/08/18 09:40 Blood Blood Culture - Preliminary NO GROWTH AFTER 48 HOURS 05/09/18 16:30 Sputum - Expectorated Sputum Gram Stain - Final 05/09/18 16:30 Sputum - Expectorated Sputum Sputum Culture - Final 05/08/18 09:40 Blood Blood Culture - Preliminary Gram Positive Cocci Assessment and Plan (1) RLL pneumonia Current visit: Yes Status: Acute Category: Medical Code(s): J18.1 - Lobar pneumonia, unspecified organism (2) Acute [place] Current visit: Yes Status: Acute Category: Medical Code(s): I21.9 - Acute myocardial infarction, unspecified (3) Acute respiratory failure Current visit: Yes Status: Acute Category: Medical Code(s): J96.00 - Acute respiratory failure, unspecified whether with hypoxia or hypercapnia (4) Carotid artery disease Current visit: Yes Status: Acute Category: Medical Code(s): I77.9 - Disorder of arteries and arterioles, unspecified (5) History of CVA (cerebrovascular accident) Current visit: Yes Status: Acute Category: Medical Code(s): Z86.73 - Personal history of transient ischemic attack (TIA), and cerebral infarction without residual deficits (6) Mitral valve regurgitation Current visit: Yes Status: Acute Category: Medical Code(s): I34.0 - Nonrheumatic mitral (valve) insufficiency (7) Hypertension Current visit: Yes Status: Acute Category: Medical Code(s): I10 - Essential (primary) hypertension (8) COPD (chronic obstructive pulmonary disease) Current visit: Yes Status: Acute Category: Medical Code(s): J44.9 - C hronic obstructive pulmonary disease, unspecified (9) Personal history of tobacco use Current visit: Yes Status: Acute Category: Medical Code(s): Z87.891 - Personal history of nicotine dependence The patient's infection will respond to the chosen ABx?: Yes Is the patient receiving the right drug, dose, and route?: Yes Could a more targeted ABx be ordered?: No
--- NOTE | 2018-05-12 08:13 | Progress Note ---
Internal Medicine - PN: Subj *Date: 05/12/18 *Time: 07:30 Interval history: Patient's largest complaint today is that his tooth and lower left back jaw hurts. He would like to have it removed. He states he cannot eat because of the discomfort. Patient denies chest pain and continues to be periodically short of breath. He states he has not been out of bed but has mainly set outside of the bed. Bowels have not moved. He said he will not move his lungs his hospital. Discussed home situation. He has many cats that are in and out of his home. He lives alone and his children check on him weekly. Patient does say that he will not start skiing again. Patient had echocardiogram completed yesterday revealed valvular heart disease as well as an ejection fraction from 25-30%. Blood culture positive for staph EQUORUM sensitive to Levaquin Exam Vital signs and Labs for Last 24 Hours: Temp Pulse Resp BP Pulse Ox 98.4 F 96 H 18 136/75 97 05/12/18 07:57 05/12/18 07:57 05/12/18 07:57 05/12/18 07:57 05/12/18 07:57 Laboratory Results - last 24 hr 05/11/18 08:00: WBC 18.4 H, RBC 3.94 L, Hgb 12.0 L, Hct 37.9 L, MCV 96.2 H, MCH 30.5, MCHC 31.7 L, RDW 13.2, Plt Count 149, MPV 8.4, Neut % (Auto) 93.7 H, Lymph % (Auto) 3.5 L, [place] % (Auto) 2.7, Eos % (Auto) 0.1, Baso % (Auto) 0.0 L, Neut # (Auto) 17.3 H, Lymph # (Auto) 0.7, [place] # (Auto) 0.5, Eos # (Auto) 0.0, Baso # (Auto) 0.0, Total Counted 100, Neutrophils % (Manual) 91 H, Lymphocytes % (Manual) 3 L, Atypical Lymphs % 3.0, Monocytes % (Manual) 3, Platelet Estimate Normal, RBC Morphology Normal 05/11/18 08:00: Sodium 143, Potassium 3.9, Chloride 107, Carbon Dioxide 26, Anion Gap 13.9, BUN 49 H D, Creatinine 1.41 H, Estimated Creat Clear 42, Estimated GFR 48 L, Est GFR ( Amer) 59, Glucose 153 H, Calcium 8.4 L, Troponin I 34.10 H 05/11/18 08:00: Lactate 1.3 I & O for Last 24 hours: Intake & Output 05/09/18 05/10/18 05/11/18 05/12/18 11:59 11:59 11:59 11:59 Intake Total 996 / 996 1555 / 1555 2005 1131 / 1131 Output Total 710 / 710 600 / 600 500 / 500 2275 / 2275 Balance 286 / 286 955 / 955 1506 / 1506 -1144 / -1144 Weight 157 lb 7 oz 155 lb 3 oz 154 lb 9 oz 156 lb 2 oz Microbiology Reports for the Last 24 Hours: Microbiology 05/09/18 19:00 Sputum - Expectorated Sputum Gram Stain - Final 05/09/18 19:00 Sputum - Expectorated Sputum Sputum Culture - Preliminary 05/08/18 09:40 Blood Blood Culture - Preliminary Coag negative Staphylococcus - Constitutional no acute distress Comments: Sitting on bedside - *Routine HEENT Exam Comments: Oral exam revealed tip of tooth and left back jaw. No edema noted of the face. Tender to palpation. - *Routine Respiratory Exam Comments: Bilateral expiratory wheezing. Moving air better today. - *Routine Cardiovascular Exam Present: RRR (Monitor shows sinus rhythm) - *Routine Abdominal Exam Present: normoactive bowel sounds. Absent: tenderness - *Routine Extremities Exam Present: edema. Absent: calf tenderness - *Routine Neurological Exam Present: alert - Routine Psychiatric Exam Comments: Easily agitated Assessment and Plan (1) RLL pneumonia Current visit: Yes Status: Acute Category: Medical Code(s): J18.1 - Lobar pneumonia, unspecified organism (2) Acute HI Current visit: Yes Status: Acute Category: Medical Code(s): I21.9 - Acute myocardial infarction, unspecified (3) Acute respiratory failure Current visit: Yes Status: Acute Category: Medical Code(s): J96.00 - Acute respiratory failure, unspecified whether with hypoxia or hypercapnia (4) Carotid artery disease Current visit: Yes Status: Acute Category: Medical Code(s): I77.9 - Disorder of arteries and arterioles, unspecified (5) History of CVA (cerebrovascular accident) Current visit: Yes Status: Acute Category: Medical Code(s): Z86.73 - Personal history of transient ischemic attack (TIA), and cerebral infarction without residual deficits (6) Mitral valve regurgitation Current visit: Yes Status: Acute Category: Medical Code(s): I34.0 - Nonrheumatic mitral (valve) insufficiency (7) Hypertension Current visit: Yes Status: Acute Category: Medical Code(s): I10 - Essential (primary) hypertension (8) COPD (chronic obstructive pulmonary disease) Current visit: Yes Status: Acute Category: Medical Code(s): J44.9 - Chronic obstructive pulmonary disease, unspecified (9) Personal history of tobacco use Current visit: Yes Status: Acute Category: Medical Code(s): Z87.891 - Personal history of nicotine dependence (10) Tooth ache Current visit: Yes Status: Acute Category: Medical Code(s): K08.89 - Other specified disorders of teeth and supporting structures - Assessment and plan all Dx Assessment and Plan for all problems:: . Intermittent reviewed. Possible discharge today. Patient does not have oxygen or neb machine at home. Physical therapy consulted to evaluate patient stability with ambulation without oxygen. Will saline lock IV. Tylenol ordered for tach.
--- NOTE | 2018-05-12 16:48 | Discharge Summary ---
General - General Admission date:: 05/08/18 Discharge date: 05/12/18 HPI HPI: Mr Haney is an 82 yo WM with hx of HBP, cerebrovascular disease, and valvular heart disease who presented to the ER this morning after suddden onset of SOA during the night. He denied cough, chest pain or fever. On prompt evaluation in the ER, he was noted to be hypoxic and acidotic on his ABG. WBC elevated at 21,000 and CXR showing RLL infiltrates. He was given aerosols and IV steroids and started on Bipap and his O2 sats came up to upper 80s and low 90s. His intial troponin was also mildly elevated. He initially refused admission but has finally consented to stay in the hospital for "one night". At the time of my exam, he is resting comfortably and tolerating the Bipap. He denies chest pain and feels less SOA. His 2nd troponin has returned elevated at 10. Dr. Fermin has been made aware. He has no past hx of angina or NV. Echo last year showed dilated left atrium, EF=45% and moderate to severe mitral regurgitation. A carotid US last year sh owed 100% stenosis on left and 70-99% stenosis of right carotid. He declined any further workup or intervention and has been maintained on ASA and Plavix. Hospital Course Hospital Course: The patient was continued on Bipap, antibiotics, steroids, and aerosols. Dr. Fermin was made aware of the elevation of his 2nd troponin. Patient would not consent to invasive procedures. Dr. Sanchez felt he had a myocardial infarction. He discussed the case with cardiology and gave the patient 40mg of lasix IV. Cardiology saw him and recommended an echo and C, but pt refused stating he just wanted to go home and was ready to join his who had passed on. The patient did have his echo completed revealing valvular heart disease as well as an EF of 25-30%. His blood culture was positive for staph equorum which was sensitive to levaquin. He insisted on being discharged home. He was discharged on levaquin and will f/u in 1 week in the office of A. Objective Vital signs: Temp Pulse Resp BP Pulse Ox 99.0 F 80 18 125/73 97 05/12/18 11:47 05/12/18 12:00 05/12/18 11:47 05/12/18 11:47 05/12/18 11:47 Narrative: - Constitutional Comments: lying comfortably with Bipap in place. No resp distress - *Routine HEENT Exam Head: Present: normocephalic, atraumatic Eye: Present: EOMI, PERRL. Absent: scleral injection ENT: Present: mucous membranes dry Comments: edentulous - *Routine Neck Exam Present: supple, carotid bruit. Absent: thyromegaly - *Routine Respiratory Exam Comments: coarse rhonchi and wheezes throughout - *Routine Cardiovascular Exam Present: RRR, murmur Comments: Gr 2/6 systolic murmur - *Routine Abdominal Exam Present: soft. Absent: tenderness, distended - *Routine Extremities Exam Comments: trace PTE - *Routine Skin Exam Present: warm. Absent: rash - *Routine Neurological Exam Present: alert, oriented X3 Results Labs on day of discharge: Preliminary micro results at discharge 05/08/18 09:40 Blood Culture - Preliminary Blood Coag negative Staphylococcus 05/08/18 09:40 Blood Culture - Preliminary Blood NO GROWTH AFTER 48 HOURS DS: Diagnosis - Discharge Diagnosis (1) RLL pneumonia Status: Acute (2) Acute [place] Status: Acute (3) Acute respiratory failure Status: Acute (4) Carotid artery disease Status: Acute (5) History of CVA (cerebrovascular accident) Status: Acute (6) Mitral valve regurgitation Status: Acute (7) Hypertension Status: Acute (8) COPD (chronic obstructive pulmonary disease) Status: Acute (9) Personal history of tobacco use Status: Acute (10) Tooth ache Status: Acute Discharge Plan - Patient Discharge Instructions Patient Instructions: DI for Heart Attack, Pneumonia-Adult, High Triglycerides, Chronic Obstructive Pulmonary Disease, Coronary Artery Disease - Follow up Plan Follow up with: Julio Sanchez MD [Primary Care Provider] - 1 week Disposition: Home Health Service Home Medications: Home Medications Medication Instructions Recorded Confirmed Type Amlodipine Besylate 10 mg PO DAILY 05/08/18 05/08/18 History Clopidogrel Bisulfate [Plavix] 75 mg PO DAILY 05/08/18 05/08/18 History Metoprolol Tartrate [Lopressor 25 mg PO BID 05/08/18 05/08/18 History 25mg tablet] Simvastatin 40 mg PO HS 05/08/18 05/09/18 History Prescriptions/Medication Reconciliation: New levoFLOXacin [Levaquin 500mg tab] 500 mg PO DAILY #7 tab Furosemide [Lasix 40mg tablet] 40 mg PO DAILY #30 tablet Continue Metoprolol Tartrate [Lopressor 25mg tablet] 25 mg PO BID Simvastatin 40 mg PO HS Clopidogrel Bisulfate [Plavix] 75 mg PO DAILY Amlodipine Besylate 10 mg PO DAILY
== END 2018-05-12 13:25 | disposition left against medical advice (07) ==
LOC: ER 09:08 → 2ND 12:02
PROVIDERS: ADMIT Family Medicine; ATTEND Family Medicine